=== PATIENT | male | born 1975 | race Caucasian/White ===

== ENCOUNTER 2024-09-05 10:39 | Emergency (ER) | payer MEDICAID, OTHER ==
[~2024-09-05] VITALS: Ht 182.9 cm; Wt 88.5 kg
[2024-09-05 11:45] VITALS: O2SAT 96
[2024-09-05 12:26] LABS: BASOPHILS # (AUTO) 0.1 K/UL (0.0-0.2); BASOPHILS % (AUTO) 0.8 % (0.0-2.0); EOSINOPHILS # (AUTO) 0.5 K/uL (0.0-0.7); EOSINOPHILS % (AUTO) 5.4 % (0.0-7.0); HEMATOCRIT 46.2 % (36.7-47.1); HEMOGLOBIN 15.5 g/dL (12.5-16.3); LYMPHOCYTES # (AUTO) 3.6 K/uL (0.8-4.8); LYMPHOCYTES % (AUTO) 40.9 % (20.5-51.5); MEAN CORPUSCULAR HEMOGLOBIN 31.5 uug (23.8-33.4); MEAN CORPUSCULAR HGB CONC 34 g/dL (32.5-36.3); MEAN CORPUSCULAR VOLUME 93.6 fL (73.0-96.2); MONOCYTES # (AUTO) 0.8 K/uL (0.1-1.30); MONOCYTES % (AUTO) 8.7 % (0.0-11.0); NEUTROPHILS # (AUTO) 3.9 K/uL (1.8-8.9); NEUTROPHILS % (AUTO) 44.2 % (38.5-71.5); PLATELET COUNT (AUTO) 209 K/uL (152-348); RED BLOOD CELL COUNT(AUTO) 4.93 MIL/uL (4.06-5.63); RED CELL DISTRIBUTION WIDTH 13.8 % (12.1-16.2); WHITE BLOOD COUNT (AUTO) 8.8 K/uL (3.6-10.2)
[2024-09-05 12:31] LABS: DIFFERENTIAL COMMENT 1
[2024-09-05 12:43] LABS: ALBUMIN 3.8 g/dL (3.4-5.0); BILIRUBIN,DIRECT 0.1 mg/dL (0.0-0.2); BILIRUBIN,TOTAL 0.5 mg/dL (0.2-1.0); CALCIUM 9.4 mg/dL (8.5-10.1); CREATININE 1.1 mg/dL (0.6-1.3); POTASSIUM 4.5 mmol/L (3.5-5.1); TOTAL PROTEIN, SERUM 7.3 g/dL (6.4-8.2)
[2024-09-05 13:06] LABS: MAGNESIUM 2.4 mg/dL (1.8-2.4)
[2024-09-05] MEDS ORDERED: CYANOCOBALAMIN 1000 MCG/ML VIAL ONE (13:48)
[2024-09-05] MEDS: CYANOCOBALAMIN 1000 MCG/ML VIAL IM ONE (13:49)
== END 2024-09-05 18:46 | disposition home or self-care (01) ==
LOC: ER 10:39
DX: R41.82 Altered mental status, unspecified (principal); R42 Dizziness and giddiness; T42.6X5A Adverse effect of other antiepileptic and sedative-hypnotic drugs, initial encounter; F32.A Depression, unspecified; F41.9 Anxiety disorder, unspecified; F42.9 Obsessive-compulsive disorder, unspecified; Y92.89 Other specified places as the place of occurrence of the external cause
CPT/HCPCS: 99283; 80076; 80048; 82607; 83735; 85025; 36415; 96372; J3420; A4606; A4663